=== PATIENT | female | born 1975 | race Caucasian/White ===

== ENCOUNTER 2017-08-05 13:17 | Day surgery (SDC) | payer BC ==
[2017-08-05] MEDS ORDERED: PROPOFOL 20 ML ×2 (16:10)
== END 2017-08-05 16:35 | disposition home or self-care (01) ==
LOC: GIL 13:17
DX: K29.70 Gastritis, unspecified, without bleeding (principal); I10 Essential (primary) hypertension
CPT/HCPCS: 43235; 84703